=== PATIENT | female | born 1985 | race African-American/Black ===

== ENCOUNTER 2018-05-18 19:25 | Emergency (ER) | payer MEDICAID ==
[~2018-05-18] VITALS: Ht 172.7 cm; Wt 91.0 kg
[2018-05-19] MEDS ORDERED: HYDROCODONE/ACETAMINOPHEN 5/325MG TABLET PO ONE (01:15)
[2018-05-19] MEDS ORDERED: KETOROLAC 30MG/ML VIAL IM ONE (03:15)
[2018-05-19 03:46] VITALS: BP 118/72
== END 2018-05-19 04:15 | disposition home or self-care (01) ==
LOC: ER 19:25
DX: M79.601 Pain in right arm (principal); F17.200 Nicotine dependence, unspecified, uncomplicated; F12.10 Cannabis abuse, uncomplicated
CPT/HCPCS: 73090; 73110; 93005; 96372; 99284; J1885